=== PATIENT | male | born 1955 | race Two or more races ===

== ENCOUNTER 2025-01-06 05:23 | Day surgery (SDC) | payer OTHER ==
[2025-01-01 07:52] LABS: BASO % 0.3 % (0.1-1.2); EOS # 0.09 (0.04-0.54); EOS % 1.5 % (0.7-7.0); LYMPH # 1.42 (1.18-3.74); LYMPH % 24.3 % (19.3-53.1); MEAN PLATELET VOLUME 9.60 fl (9.4-12.4); MONO # 0.57 (0.24-0.82); MONO % 9.7 % (4.7-12.5); NEUT # 3.74 (1.56-6.13); NEUT % 64.0 % (34.0-71.1); RED CELL DISTRIBUTION WIDTH 15.1 % (11.6-14.4)
[2025-01-01 07:53] LABS: URINE APPEARANCE Clear; URINE BILIRRUBIN Negative (NEGATIVE); URINE BLOOD Negative; URINE COLOR Yellow; URINE KETONE Negative (NEGATIVE); URINE LEUKOCYTE Negative; URINE NITRATE Negative; URINE PROTEIN Negative (NEGATIVE); URINE UROBILINOGEN 0.2 E.U./dl
[2025-01-01 07:54] LABS: URINE EPITHELIAL CELLS 1.5 uL (0.0-38.8); URINE WBC 2.6 uL (0.0-23.2)
[2025-01-01 07:56] LABS: URINE BACTERIA 2.4 uL (0.0-1933); URINE CAST 0.00 uL (0.0-1.40); URINE GLUCOSE >=1000 MG/DL (NEGATIVE); URINE RBC 0.7 uL (0.0-20.8)
[2025-01-01 08:10] LABS: INR 1.04
[2025-01-01 08:20] VITALS: BP 123/78
[2025-01-01 08:36] LABS: ALT/SGPT 42.0 U/L (12-78); AST/SGOT 21.0 U/L (15-37); BILIRUBIN TOTAL 0.71 mg/dL (0.3-1.2); BUN CREA RATIO 20.0 (7.0-25.0); CREATININE SERUM 0.94 mg/dL (0.70-1.30); GFR 79.34; GLOBULINA 3.4 G/DL (2.4-3.5); GLUCOSE FASTING 137.0 mg/dL (65-100); OSMOLALITY SERUM 282.0 MOSM/KG (275-295)
[~2025-01-06] VITALS: Ht 165.1 cm; Wt 91.2 kg
[~2025-01-06 05:23] MED LIST: ATORVASTATIN CA10 MG PO; LOSARTAN POTAS100 MG PO; METOPROLOL; OMEGA; SYNJARDY XR 101 EACH PO
[2025-01-06] MEDS ORDERED: AMPICILLIN SODIUM 2,000 MG VIAL IV ONE (07:45)
[2025-01-06] MEDS ORDERED: BUPIVACAINE HCL 30 ML VIAL IJ ONE (07:45)
[2025-01-06] MEDS ORDERED: ISOPROPYL ALCOHOL 30 ML OUNCE TOP ONE (07:45)
== END 2025-01-06 10:45 | disposition home or self-care (01) ==
LOC: CIR.AMB 05:23
PROVIDERS: ATTEND Orthopaedic Surgery Hand Surgery
DX: M65.341 Trigger finger, right ring finger (principal)